=== PATIENT | female | born 1950 | race Caucasian/White ===

== ENCOUNTER 2018-03-19 08:22 | Day surgery (SDC) | payer MEDICARE, OTHER ==
[~2018-03-19] VITALS: Ht 149.9 cm; Wt 75.5 kg
[~2018-03-19 08:22] MED LIST: ASPI-1182 PO; ATOR20TA86 PO; CALC-1038 PO; LISI-660 PO; METF-960 PO; METO25 PO; MULT-1203 PO; SODIUM CHLORIDE 0.9% 1,000 ML IV ONE
[2018-03-19] MEDS ORDERED: PROPOFOL 1% 20 ML VIAL IVP ONE (08:23)
[2018-03-19] MEDS ORDERED: LIDOCAINE/PF 2% 5 ML SYRINGE IVP ONE (08:23)
[2018-03-19] MEDS ORDERED: SODIUM CHLORIDE 0.9% 1,000 ML IV ONE (09:00)
[2018-03-19 09:09] LABS: GLUCOMETER DEV NAME(LOC) SDS 5; GLUCOSE,POINT OF CARE 124 MG/DL (70-110)
[2018-03-19] MEDS ORDERED: BOTULINUM TOXIN TYPE A 100 UNITS/VIAL IM ONE (11:09)
[2018-03-19] MEDS ORDERED: OXYGEN THERAPY IH SCH (20:00)
== END 2018-03-19 11:40 | disposition home or self-care (01) ==
LOC: SURGERY 08:22
PROVIDERS: ATTEND Specialist
DX: K44.9 Diaphragmatic hernia without obstruction or gangrene (principal); K22.4 Dyskinesia of esophagus; E11.9 Type 2 diabetes mellitus without complications; I10 Essential (primary) hypertension; E78.00 Pure hypercholesterolemia, unspecified; K21.9 Gastro-esophageal reflux disease without esophagitis; Z79.01 Long term (current) use of anticoagulants; Z79.84 Long term (current) use of oral hypoglycemic drugs; Z79.82 Long term (current) use of aspirin; Z79.899 Other long term (current) drug therapy
CPT/HCPCS: 43236; 82962; 93005; J0585; J2704; J3490; J7030